=== PATIENT | female | born 1975 | race Caucasian/White ===

== ENCOUNTER 2017-11-26 14:53 | Outpatient (CLI) | payer OTHER ==
[~2017-11-26] VITALS: Ht 162.6 cm; Wt 98.6 kg
[2017-11-26 15:19] VITALS: BP 131/65
[2017-11-26] MEDS ORDERED: PREN1TAB60 PO (15:31)
[2017-11-26] MEDS ORDERED: LEVO50TA5 PO (15:31)
[2017-11-26] MEDS ORDERED: CALC200T3 PO (15:33)
[2017-11-26] MEDS ORDERED: ASPI81TA50 PO (15:33)
== END 2017-11-26 17:52 | disposition home or self-care (01) ==
LOC: LDOP 14:53
PROVIDERS: ATTEND Obstetrics & Gynecology Gynecology
DX: O36.8130 Decreased fetal movements, third trimester, not applicable or unspecified (principal); Z3A.39 39 weeks gestation of pregnancy
CPT/HCPCS: 59025; 76815; 99211; G0463

== ENCOUNTER 2017-11-27 15:56 | Inpatient (IN) | payer OTHER ==
[~2017-11-27] VITALS: Ht 162.6 cm; Wt 98.1 kg
[~2017-11-27 15:56] MED LIST: ASPI81TA50 PO; CALC200T3 PO; LEVO50TA5 PO; PREN1TAB60 PO
[2017-12-01 10:46] VITALS: BP 120/69
[2017-12-01] MEDS ORDERED: LACTATED RINGERS 1,000 ML IVBOLUS ONE (11:00)
[2017-12-01] MEDS ORDERED: PLEASE ENTER HEIGHT AND WEIGHT MC SCH (11:00)
[2017-12-01] MEDS ORDERED: METOCLOPRAMIDE 5 MG/ML, 2ML IV ONE (11:00)
[2017-12-01 11:01] LABS: BASOPHILS # (AUTO) 0.07 x10^3/uL (0-0.1); BASOPHILS % (AUTO) 1 % (0-1); EOSINOPHILS # (AUTO) 0.03 x10^3/uL (0-0.4); EOSINOPHILS % (AUTO) 0 % (1-7); LYMPHOCYTES # (AUTO) 1.53 x10^3/uL (1-3.4); LYMPHOCYTES % (AUTO) 18 % (22-44); MD NO; MEAN CORPUSCULAR HEMOGLOBIN 34.3 pg (27.0-34.8); MEAN CORPUSCULAR HGB CONC 34.5 g/dL (32.4-35.8); MEAN CORPUSCULAR VOLUME 99.4 fL (80-100); MEAN PLATELET VOLUME 8.7 fL (7.4-10.4); MONOCYTES # (AUTO) 0.53 x10^3/uL (0.2-0.8); MONOCYTES % (AUTO) 6 % (2-9); NEUTROPHILS # (AUTO) 6.55 x10^3/uL (1.8-6.8); NEUTROPHILS % (AUTO) 75 % (42-75); PLATELET COUNT 177 x10^3/uL (130-400); RED BLOOD COUNT 3.68 x10^6/uL (3.82-5.3); RED CELL DISTRIBUTION WIDTH 14.5 % (9.6-15.2)
[2017-12-01] MEDS ORDERED: SODIUM CITRATE/CITRIC ACID 30 ML UDC ONE (11:06)
[2017-12-01] MEDS ORDERED: NEWBORN KIT ONE (11:06)
[2017-12-01] MEDS ORDERED: OXYTOCIN 30U/ 0.9% NaCL 500ML 500 ML ONE (11:07)
[2017-12-01] MEDS ORDERED: METOCLOPRAMIDE 5 MG/ML, 2ML ONE (11:07)
[2017-12-01] MEDS ORDERED: morphine SULFATE/PF 0.5 MG/ML, 10ML ONE (11:18)
[2017-12-01] MEDS: LACTATED RINGERS 1,000 ML IV SCH ×8 (11:20→22:16)
[2017-12-01] MEDS: OXYTOCIN 30U/ 0.9% NaCL 500ML 500 ML IV SCH ×4 (12:16→22:16)
[2017-12-01] MEDS ORDERED: MEASLES,MUMPS&RUBELLA VACC/PF 0.5 ML SQ-VACC PRN (12:30)
[2017-12-01] MEDS ORDERED: morphine SULFATE 10 MG/ML, 1ML IVPush PRN (12:30)
[2017-12-01] MEDS ORDERED: ONDANSETRON 2MG/ML, 2ML IV PRN (12:30)
[2017-12-01] MEDS ORDERED: MISOPROSTOL 200 MCG TABLET PR PRN (12:30)
[2017-12-01] MEDS ORDERED: OXYcodone IR 5MG TABLET PO PRN (12:30)
[2017-12-01] MEDS ORDERED: DIPH,PERTUSS(ACELL),TET VAC/PF NC IM-VACC PRN (12:30)
[2017-12-01] MEDS ORDERED: RHOGAM FROM BLOOD BANK 1 NOTE EA IM/IV ONE (12:30)
[2017-12-01] MEDS ORDERED: CALCIUM CARBONATE 500 MG TAB.CHEW PO PRN (12:30)
[2017-12-01] MEDS ORDERED: PHENYLEPHRINE 10 MG/ML ONE (13:31)
[2017-12-01] MEDS ORDERED: EPHEDRINE 50 MG/ML, 1ML ONE (13:31)
[2017-12-01] MEDS ORDERED: OXYTOCIN 10 UNITS/ML, 1ML ONE (13:31)
[2017-12-01] MEDS ORDERED: CEFAZOLIN 1,000 MG ONE (13:31)
[2017-12-01] MEDS ORDERED: KETOROLAC 30 MG/1 ML ONE (14:58)
[2017-12-01] MEDS: KETOROLAC 30 MG/1 ML IV SCH ×2 (14:59→22:01)
[2017-12-01 15:05] VITALS: BP 108/69
[2017-12-01 17:00] VITALS: BP 109/69
[2017-12-01 20:03] VITALS: BP 121/76
[2017-12-01 20:41] LABS: BASOPHILS # (AUTO) 0.03 x10^3/uL (0-0.1); BASOPHILS % (AUTO) 0 % (0-1); EOSINOPHILS # (AUTO) 0.03 x10^3/uL (0-0.4); EOSINOPHILS % (AUTO) 0 % (1-7); LYMPHOCYTES # (AUTO) 1.62 x10^3/uL (1-3.4); LYMPHOCYTES % (AUTO) 16 % (22-44); MD NO; MEAN CORPUSCULAR HEMOGLOBIN 34.3 pg (27.0-34.8); MEAN CORPUSCULAR HGB CONC 34.4 g/dL (32.4-35.8); MEAN CORPUSCULAR VOLUME 99.8 fL (80-100); MEAN PLATELET VOLUME 7.7 fL (7.4-10.4); MONOCYTES # (AUTO) 0.51 x10^3/uL (0.2-0.8); MONOCYTES % (AUTO) 5 % (2-9); NEUTROPHILS # (AUTO) 7.99 x10^3/uL (1.8-6.8); NEUTROPHILS % (AUTO) 79 % (42-75); PLATELET COUNT 158 x10^3/uL (130-400); RED BLOOD COUNT 3.48 x10^6/uL (3.82-5.3)
[2017-12-01] MEDS: DOCUSATE 100 MG CAPSULE PO PRN (22:02)
[2017-12-02 00:17] VITALS: BP 111/74
[2017-12-02] MEDS: LACTATED RINGERS 1,000 ML IV SCH ×11 (02:35→20:16)
[2017-12-02 05:00] VITALS: BP 114/73
[2017-12-02] MEDS: KETOROLAC 30 MG/1 ML IV SCH ×5 (05:25→23:30)
[2017-12-02] MEDS: OXYTOCIN 30U/ 0.9% NaCL 500ML 500 ML IV SCH ×4 (06:35→18:16)
[2017-12-02 07:45] VITALS: BP 116/78
[2017-12-02] MEDS: DOCUSATE 100 MG CAPSULE PO PRN (07:46)
[2017-12-02] MEDS: SIMETHICONE 80 MG CHEW TAB PO PRN ×3 (07:46→18:10)
[2017-12-02] MEDS: PRENATAL VIT/IRON/FA 1 EACH TABLET PO SCH (07:46)
[2017-12-02] MEDS: OXYcodone/APAP 5/325MG TABLET PO PRN ×3 (08:45→18:09)
[2017-12-02 11:55] VITALS: BP 115/81
[2017-12-02] MEDS ORDERED: IBUPROFEN 600 MG TABLET ONE (18:05)
[2017-12-02] MEDS: IBUPROFEN 600 MG TABLET PO PRN (18:09)
[2017-12-02 20:00] VITALS: BP 98/61
[2017-12-03] MEDS ORDERED: IBUPROFEN 600 MG TABLET ONE ×2 (01:09→07:58)
[2017-12-03] MEDS: OXYcodone/APAP 5/325MG TABLET PO PRN ×2 (01:10→07:55)
[2017-12-03] MEDS: IBUPROFEN 600 MG TABLET PO PRN ×2 (01:10→07:55)
[2017-12-03] MEDS: SIMETHICONE 80 MG CHEW TAB PO PRN (01:13)
[2017-12-03] MEDS: LACTATED RINGERS 1,000 ML IV SCH ×4 (02:35→04:16)
[2017-12-03] MEDS: OXYTOCIN 30U/ 0.9% NaCL 500ML 500 ML IV SCH ×2 (02:35→04:16)
[2017-12-03] MEDS: KETOROLAC 30 MG/1 ML IV SCH (05:30)
[2017-12-03 07:53] VITALS: BP 122/82
[2017-12-03] MEDS: DOCUSATE 100 MG CAPSULE PO PRN (07:55)
[2017-12-03] MEDS: PRENATAL VIT/IRON/FA 1 EACH TABLET PO SCH (07:55)
[2017-12-03] MEDS ORDERED: OXYC-302 PO (08:42)
[2017-12-03] MEDS ORDERED: IBUP-1222 PO (08:42)
== END 2017-12-03 10:49 | disposition home or self-care (01) | DRG 785 ==
LOC: LDIP 12-01 10:08 → 2NW 12-01 15:06
PROVIDERS: ADMIT Obstetrics & Gynecology Gynecology; ATTEND Obstetrics & Gynecology Gynecology
PROC: 10D00Z1 Extraction of Products of Conception, Low, Open Approach (ICD-10-PCS; principal; 2017-12-01)
PROC: 0UB70ZZ Excision of Bilateral Fallopian Tubes, Open Approach (ICD-10-PCS; 2017-12-01)
DX: O34.211 Maternal care for low transverse scar from previous cesarean delivery (principal); Z3A.39 39 weeks gestation of pregnancy; Z37.0 Single live birth; Z85.3 Personal history of malignant neoplasm of breast; O99.824 Streptococcus B carrier state complicating childbirth; Z30.2 Encounter for sterilization
CPT/HCPCS: 36415; 82803; 85025; 86850; 86900; 88302; G0378; J0690; J1885; J2274; J2370; J2590; J2765; J7120

== ENCOUNTER 2018-01-08 14:01 | Emergency (ER) | payer OTHER ==
[~2018-01-08 14:01] MED LIST changes: +IBUP-1222 PO; +OXYC-302 PO
[2018-01-08 14:32] LABS: BASOPHILS # (AUTO) 0.09 x10^3/uL (0-0.1); BASOPHILS % (AUTO) 1 % (0-1); EOSINOPHILS # (AUTO) 0.12 x10^3/uL (0-0.4); EOSINOPHILS % (AUTO) 2 % (1-7); LYMPHOCYTES % (AUTO) 36 % (22-44); MD NO; MEAN CORPUSCULAR HEMOGLOBIN 32.6 pg (27.0-34.8); MEAN CORPUSCULAR HGB CONC 33.5 g/dL (32.4-35.8); MEAN CORPUSCULAR VOLUME 97.3 fL (80-100); MEAN PLATELET VOLUME 7.9 fL (7.4-10.4); MONOCYTES % (AUTO) 6 % (2-9); NEUTROPHILS # (AUTO) 3.84 x10^3/uL (1.8-6.8); NEUTROPHILS % (AUTO) 55 % (42-75); PLATELET COUNT 224 x10^3/uL (130-400); RED BLOOD COUNT 4.27 x10^6/uL (3.82-5.3); RED CELL DISTRIBUTION WIDTH 12.9 % (9.6-15.2)
[2018-01-08 14:34] LABS: ALANINE AMINOTRANSFERASE 38 U/L (12-78); ALBUMIN 3.5 g/dL (3.4-5.0); ANION GAP 7 mmol/L (5-15); CALCIUM 8.7 mg/dL (8.5-10.1); CHLORIDE 107 mmol/L (98-107); CREATININE 0.73 mg/dL (0.55-1.02)
[2018-01-08 14:37] LABS: ALKALINE PHOSPHATASE 78 U/L (45-117); BILIRUBIN,TOTAL 0.3 mg/dL (0.2-1.0); TOTAL PROTEIN 7.2 g/dL (6.4-8.2)
[2018-01-08 15:31] LABS: CULTURE INDICATED? YES; MICROSCOPIC INDICATED
[2018-01-08 16:37] VITALS: BP 116/77
== END 2018-01-08 16:40 | disposition home or self-care (01) ==
LOC: ED 16:34
DX: O99.89 Other specified diseases and conditions complicating pregnancy, childbirth and the puerperium (principal); K42.9 Umbilical hernia without obstruction or gangrene
CPT/HCPCS: 36415; 74176; 80053; 81001; 83690; 85025; 87086; 99285

== ENCOUNTER → 2018-02-02 | Outpatient (CLI) | payer OTHER | END | disposition home or self-care (01) | LOC: CFH 12:57 | PROVIDERS: ATTEND Obstetrics & Gynecology Gynecology | DX: Z12.31 Encounter for screening mammogram for malignant neoplasm of breast (principal); Z85.3 Personal history of malignant neoplasm of breast | CPT/HCPCS: 77063; 77067 ==

== ENCOUNTER → 2018-05-28 | Outpatient (CLI) | payer OTHER | END | disposition home or self-care (01) | LOC: CFH 12:33 | PROVIDERS: ATTEND Nurse Practitioner | DX: N64.4 Mastodynia (principal); I89.0 Lymphedema, not elsewhere classified; Z90.12 Acquired absence of left breast and nipple; Z85.3 Personal history of malignant neoplasm of breast | CPT/HCPCS: 76641; 77065; G0279 ==

== ENCOUNTER 2020-03-14 09:27 | Emergency (ER) | payer OTHER ==
[~2020-03-14] VITALS: Ht 162.6 cm; Wt 86.4 kg
--- NOTE | 2020-03-14 09:50 | NUR ---
PT AMBULATED WITH RN TO ROOM. STEADY GAIT. PT NEEDING TO USE RESTROOM. RN SHOWED PT WHERE RESTROOM IS.
--- NOTE | 2020-03-14 09:54 | NUR ---
PT PRESENTED TO ED D/T GOLDSMITH, BODYACHES, BODY FATIUGE INTERMITTENTLY SINCE 02/27/20. PT STATES HAS BEEN TESTED FOR COVID "7 TIMES" WHICH ALL HAVE BEEN NEGATIVE. STATES WAS TESTED LAST WEEK WHICH WAS NEGATIVE. PT STATES IS EXTREMELY SCARED OF COVID SINCE HAVING YOUNG CHILDREN AND ELDERLY WHO LIVES WITH THEM.
[2020-03-14] MEDS ORDERED: VITAMINS (09:57)
--- NOTE | 2020-03-14 10:34 | NUR ---
RN INFORMED PT THAT A URINE SAMPLE IS NEEDED. PT STATES UNABLE TO VOID AT THIS TIME. RN TO REASSESS. LAB AT BEDSIDE.
[2020-03-14 11:04] LABS: BASOPHILS % (AUTO) 1 % (0-1); EOSINOPHILS % (AUTO) 0 % (1-7); LYMPHOCYTES % (AUTO) 16 % (22-44); MEAN CORPUSCULAR HEMOGLOBIN 31.8 pg (27.0-34.8); MEAN CORPUSCULAR HGB CONC 34.1 g/dL (32.4-35.8); MONOCYTES % (AUTO) 5 % (2-9); NEUTROPHILS % (AUTO) 78 % (42-75); PLATELET COUNT 243 x10^3/uL (130-400); RED BLOOD COUNT 4.38 x10^6/uL (3.82-5.3); RED CELL DISTRIBUTION WIDTH 13.3 % (9.6-15.2)
[2020-03-14 11:06] LABS: MD NO
--- NOTE | 2020-03-14 11:07 | NUR ---
PT ABLE TO PROVIDE RN WITH A URINE SAMPLE. COLLECTED AND SENT TO LAB.
[2020-03-14 11:18] LABS: MICROSCOPIC AUTO
[2020-03-14 11:31] LABS: ALANINE AMINOTRANSFERASE 23 U/L (12-78); ANION GAP 7 mmol/L (5-15); CALCIUM 9.1 mg/dL (8.5-10.1); CHLORIDE 108 mmol/L (98-107); CREATININE 0.64 mg/dL (0.55-1.02)
[2020-03-14 11:41] LABS: ALKALINE PHOSPHATASE 57 U/L (45-117); BILIRUBIN,TOTAL 0.4 mg/dL (0.2-1.0); TOTAL PROTEIN 7.5 g/dL (6.4-8.2)
--- NOTE | 2020-03-14 11:55 | NUR ---
PT IN CT SCAN.
[2020-03-14 12:25] VITALS: BP 125/74
--- NOTE | 2020-03-14 12:25 | NUR ---
PT SITTING ON [facility] AWAITING RECHECK BY ERMD. HERNANDEZ. NO OTHER NEEDS AT THIS TIME.
--- NOTE | 2020-03-14 12:36 | NUR ---
PT BEING DISCHARGED HOME IN A STABLE CONDITION. DC INSTRUCTIONS DISCUSSED WITH PT. PT VERBALIZED UNDERSTANDING. NO FURTHER QUESTIONS OR CONCERNS EXPRESSED AT THAT TIME. PT TO AMBULATE WITH RN TO DC DESK.
== END 2020-03-14 12:38 | disposition home or self-care (01) ==
LOC: ED 10:13
DX: M79.10 Myalgia, unspecified site (principal); R51.9 Headache, unspecified; N30.00 Acute cystitis without hematuria; R94.31 Abnormal electrocardiogram [ECG] [EKG]; R06.89 Other abnormalities of breathing; Z87.891 Personal history of nicotine dependence
CPT/HCPCS: 36415; 70450; 71045; 80053; 81001; 84443; 85025; 87086; 93005; 99285

== ENCOUNTER 2020-04-13 13:26 | Emergency (ER) | payer OTHER ==
[~2020-04-13] VITALS: Ht 162.6 cm; Wt 84.1 kg
[~2020-04-13 13:26] MED LIST changes: -OXYC-302 PO; +OXYC1TAB14 PO; +VITAMINS
--- NOTE | 2020-04-13 13:50 | NUR ---
pt ambulated unassisted from triage to room, then ambulated to bathroom for ua collection with steady gait and good balance. pt changed into gown and provider at bedside to assess. pt in bed with no signs or symptoms of acute distress noted respirations even and unlabored
--- NOTE | 2020-04-13 14:16 | NUR ---
pt in bed with no signs or symptoms of acute distress noted respirations even and unlabored bed rails up bilaterally and call light in hand, pt calling .
[2020-04-13 14:47] LABS: BASOPHILS % (AUTO) 1 % (0-1); EOSINOPHILS % (AUTO) 0 % (1-7); LYMPHOCYTES % (AUTO) 9 % (22-44); MEAN CORPUSCULAR HEMOGLOBIN 32.1 pg (27.0-34.8); MEAN CORPUSCULAR HGB CONC 34.2 g/dL (32.4-35.8); MONOCYTES % (AUTO) 3 % (2-9); NEUTROPHILS % (AUTO) 88 % (42-75); PLATELET COUNT 259 x10^3/uL (130-400); RED BLOOD COUNT 4.24 x10^6/uL (3.82-5.3); RED CELL DISTRIBUTION WIDTH 13.5 % (9.6-15.2)
[2020-04-13 14:48] LABS: HCT (SEDRATE) 39.5 % (34.6-47.8)
[2020-04-13 14:59] LABS: ALANINE AMINOTRANSFERASE 32 U/L (12-78); ALBUMIN 3.9 g/dL (3.4-5.0); ANION GAP 8 mmol/L (5-15); CALCIUM 8.8 mg/dL (8.5-10.1); CHLORIDE 109 mmol/L (98-107); CREATININE 0.61 mg/dL (0.55-1.02)
[2020-04-13 15:03] LABS: MICROSCOPIC AUTO
[2020-04-13 15:03] LABS: ALKALINE PHOSPHATASE 51 U/L (45-117); BILIRUBIN,TOTAL 0.4 mg/dL (0.2-1.0); TOTAL PROTEIN 7.2 g/dL (6.4-8.2)
[2020-04-13 15:28] VITALS: BP 116/80
[2020-04-13 15:53] LABS: MD SCAN
== END 2020-04-13 16:50 | disposition home or self-care (01) ==
LOC: ED 13:56
DX: R53.1 Weakness (principal); R20.0 Anesthesia of skin; R11.0 Nausea; Z85.3 Personal history of malignant neoplasm of breast
CPT/HCPCS: 36415; 80053; 81001; 84703; 85025; 85651; 93005; 99284

== ENCOUNTER → 2020-05-17 | Outpatient (CLI) | payer OTHER | END | disposition home or self-care (01) | LOC: CFH 08:19 | PROVIDERS: ATTEND Obstetrics & Gynecology Gynecology | DX: Z12.31 Encounter for screening mammogram for malignant neoplasm of breast (principal) | CPT/HCPCS: 77063; 77067 ==

== ENCOUNTER 2020-09-07 13:30 | Day surgery (SDC) | payer OTHER ==
[2020-09-04 09:40] LABS: BASOPHILS % (AUTO) 1 % (0-1); EOSINOPHILS % (AUTO) 1 % (1-7); LYMPHOCYTES % (AUTO) 30 % (22-44); MEAN CORPUSCULAR HEMOGLOBIN 32.5 pg (27.0-34.8); MEAN CORPUSCULAR HGB CONC 33.9 g/dL (32.4-35.8); MEAN PLATELET VOLUME 8.6 fL (7.4-10.4); MONOCYTES % (AUTO) 6 % (2-9); NEUTROPHILS % (AUTO) 62 % (42-75); PLATELET COUNT 227 x10^3/uL (130-400); RED BLOOD COUNT 4.21 x10^6/uL (3.82-5.3); RED CELL DISTRIBUTION WIDTH 13.7 % (9.6-15.2)
[~2020-09-07] VITALS: Ht 162.6 cm; Wt 76.1 kg
[2020-09-07] MEDS ORDERED: BUPIVACAINE/PF 0.5% ONE (13:53)
[2020-09-07] MEDS ORDERED: EPINEPHRINE 1 MG/ML, 1ML ONE ×2 (13:53→13:55)
[2020-09-07] MEDS ORDERED: VANCOMYCIN 1,000 MG ONE (13:53)
[2020-09-07] MEDS ORDERED: GENTAMICIN 80 MG/2 ML ONE (13:53)
[2020-09-07] MEDS ORDERED: CEFAZOLIN 1,000 MG ONE (13:53)
[2020-09-07] MEDS ORDERED: SODIUM BICARBONATE 1 MEQ/ML, 50ML VIAL ONE (13:54)
[2020-09-07] MEDS ORDERED: LIDOCAINE-MPF 2% ,5ML ONE (13:55)
[2020-09-07 14:09] VITALS: BP 112/71
[2020-09-07] MEDS ORDERED: LACTATED RINGERS 1,000 ML IV SCH (14:30)
[2020-09-07] MEDS ORDERED: CHLORHEXIDINE 15 ML UDC PO ONE (14:30)
[2020-09-07 14:41] LABS: HCG UR SG 1.018 (1.003-1.030)
[2020-09-07] MEDS ORDERED: ACETAMINOPHEN 500 MG TABLET PO ONE (15:00)
[2020-09-07] MEDS ORDERED: SCOPOLAMINE 1MG PATCH TD SCH (15:00)
[2020-09-07] MEDS ORDERED: FENTANYL PF 250 MCG/5ML ONE (15:02)
[2020-09-07] MEDS ORDERED: MIDAZOLAM 1 MG/ML, 2ML ONE (15:02)
[2020-09-07] MEDS ORDERED: FENTANYL PF 100 MCG/2ML ONE ×2 (18:16→19:04)
[2020-09-07] MEDS ORDERED: ROCURONIUM 10MG/ML,5ML ONE (18:18)
[2020-09-07] MEDS ORDERED: SUCCINYLCHOLINE 20 MG/ML, 10ML ONE (18:18)
[2020-09-07] MEDS ORDERED: DEXAMETHASONE 4 MG/ML, 1ML ONE ×2 (18:18)
[2020-09-07] MEDS ORDERED: ONDANSETRON 2MG/ML, 2ML ONE ×2 (18:18)
[2020-09-07] MEDS ORDERED: PROPOFOL 10 MG/ML, 20ML ONE (18:18)
[2020-09-07] MEDS ORDERED: EPHEDRINE 50 MG/ML, 1ML IVPush PRN (19:00)
[2020-09-07] MEDS ORDERED: ALBUTEROL SULFATE 2.5 MG/3 ML NPPB PRN (19:00)
[2020-09-07] MEDS ORDERED: ONDANSETRON 2MG/ML, 2ML IVPush PRN (19:00)
[2020-09-07] MEDS ORDERED: OXYcodone 5 MG/5 ML ORAL.SOL UDC PO PRN (19:00)
[2020-09-07] MEDS ORDERED: LORazepam 2 MG/ML, 1ML IVPush PRN (19:00)
[2020-09-07] MEDS ORDERED: PROMETHAZINE 25 MG/ML, 1ML IVPush PRN (19:00)
[2020-09-07] MEDS ORDERED: DIPHENHYDRAMINE 50 MG/ML, 1ML IVPush PRN ×2 (19:00)
[2020-09-07] MEDS ORDERED: LABETALOL 5MG/ML, 20ML IV PRN (19:00)
[2020-09-07] MEDS ORDERED: MEPERIDINE/PF 25MG/0.5ML IVPush PRN (19:00)
[2020-09-07] MEDS ORDERED: MIDAZOLAM 1 MG/ML, 2ML IV PRN (19:00)
[2020-09-07] MEDS ORDERED: DIAZEPAM 5 MG/ML, 2ML IVPush PRN (19:00)
[2020-09-07] MEDS ORDERED: PROMETHAZINE 12.5 MG SUPP PR PRN (19:00)
[2020-09-07] MEDS ORDERED: HYDROmorphone 1 MG/ML, 1ML INJ IVPush PRN (19:00)
[2020-09-07] MEDS: FENTANYL PF 100 MCG/2ML IV PRN ×3 (19:00→19:38)
[2020-09-07] MEDS ORDERED: hydrALAzine 20 MG/ML, 1ML IV PRN (19:00)
[2020-09-07] MEDS ORDERED: OXYcodone 5 MG/5 ML ORAL.SOL UDC ONE (19:04)
== END 2020-09-07 20:25 | disposition home or self-care (01) ==
LOC: OR 13:30
PROVIDERS: ATTEND Plastic Surgery
DX: N65.1 Disproportion of reconstructed breast (principal); N65.0 Deformity of reconstructed breast; Z20.822 Contact with and (suspected) exposure to COVID-19; Z79.891 Long term (current) use of opiate analgesic; Z79.899 Other long term (current) drug therapy; Z85.3 Personal history of malignant neoplasm of breast; Z90.12 Acquired absence of left breast and nipple
CPT/HCPCS: 15570; 15771; 15772; 19342; 36415; 81025; 84703; 85025; C1729; C1789; J0171; J0330; J0690; J1100; J1580; J2250; J2405; J2704; J3010; J3370; U0003; U0005